=== PATIENT | female | born 1955 | race Caucasian/White ===

== ENCOUNTER 2022-11-30 09:37 | Emergency (ER) | payer OTHER ==
[~2022-11-30] VITALS: Ht 165.1 cm; Wt 63.5 kg
[2022-11-30 09:37] VITALS: BP_SYST 136
--- NOTE | 2022-11-30 09:37 | NUR ---
BROUGHT IN BY [facility] AND PLACED IN BED #4, TRIAGED AND REPORT GIVEN TO TIFFANIE
--- NOTE | 2022-11-30 09:40 | NUR ---
Note jeremie in EDM - 11/30/22 at 1001 by [email or web address] Pt brought from home/ BLS , A&Ox4, pt presents to ER with persistent cough, dizziness and R hip pain after falling few days ago, respirations even and unlabored, cap refill <3, VSS, afebrile, will cont to monitor.
--- NOTE | 2022-11-30 09:40 | NUR ---
Pt brought from home/ BLS , A&Ox4, pt presents to ER with persistent cough, dizziness and L hip pain after falling few days ago, respirations even and unlabored, cap refill <3, VSS, afebrile, will cont to monitor.
--- NOTE | 2022-11-30 10:00 | NUR ---
Dr Cline evaluating patient at bedside
[2022-11-30 10:03] LABS: BASOPHILS % (AUTO) 0.5 % (0.0-2.0); EOSINOPHILS # (AUTO) 0.1 K/uL (0.0-0.4); EOSINOPHILS % (AUTO) 1.6 % (0.0-4.0); HEMATOCRIT 40.4 % (36-48); HEMOGLOBIN 13.6 g/dL (12.0-16.0); LYMPHOCYTES # (AUTO) 1.5 K/uL (1.0-5.5); LYMPHOCYTES % (AUTO) 26.6 % (20.5-51.5); MEAN CORPUSCULAR HEMOGLOBIN 31 pg (27-31); MEAN CORPUSCULAR HGB CONC 34 % (32-36); MEAN CORPUSCULAR VOLUME 93 fL (79.0-98.0); MONOCYTES # (AUTO) 0.5 K/uL (0.0-1.0); NEUTROPHILS # (AUTO) 3.5 K/uL (1.8-7.7); NEUTROPHILS % (AUTO) 62.3 % (40.0-70.0); PLATELET COUNT (AUTO) 325 K/uL (130-430); RED BLOOD CELL COUNT(AUTO) 4.35 MIL/uL (4.2-6.2); RED CELL DISTRIBUTION WIDTH 13.1 % (9.0-15.0); WHITE BLOOD COUNT (AUTO) 5.6 K/uL (4.8-10.8)
[2022-11-30 10:20] LABS: ANION GAP 5 (5-15); CALCIUM 8.5 mg/dL (8.4-11.0); CHLORIDE 104 mmol/L (98-107); CREATININE 0.63 mg/dL (0.55-1.30); GFR AFRICAN AMERICAN 122 mL/min (>90); GLUCOSE 94 mg/dL (70-99); UREA NITROGEN, BLOOD 13 mg/dL (8-21)
[2022-11-30 10:23] LABS: PROTHROMBIN TIME 10.4 SECS (9.5-12.5)
[2022-11-30 10:27] LABS: ALANINE AMINOTRANSFERASE 16 U/L (12-78); ALBUMIN 3.4 g/dL (3.4-4.8); ASPARTATE AMINOTRANSFERASE 8 U/L (10-37); TOTAL BILIRUBIN 0.4 mg/dL (0.0-1.0)
--- NOTE | 2022-11-30 11:23 | NUR ---
Covid and flu swab sent to the lab
--- NOTE | 2022-11-30 11:24 | NUR ---
Pt A&Ox4, VSS, respirations even and unlabored, cap refill <3, pt requesting lunch, food tray ordered at this time. will cont to monitor.
[2022-11-30 11:26] VITALS: BP_SYST 136
[2022-11-30] MEDS ORDERED: ALBMDI INH (12:24)
[2022-11-30] MEDS ORDERED: PSEU30TA36 PO (12:24)
--- NOTE | 2022-11-30 13:50 | NUR ---
DPatient given written and verbal discharge instructions and verbalizes understanding. ER MD discussed with patient the results and treatment provided. Patient in stable condition. ID arm band removed. Rx of SUDAFED, VENTOLIN given. Patient educated on pain management and to follow up with PMD. Pain Scale 0/10. Opportunity for questions provided and answered. Medication side effect fact sheet provided.
== END 2022-11-30 13:50 | disposition home or self-care (01) ==
LOC: SED 09:37
DX: G45.9 Transient cerebral ischemic attack, unspecified (principal); J40 Bronchitis, not specified as acute or chronic; R29.810 Facial weakness; Z79.899 Other long term (current) drug therapy; Z20.822 Contact with and (suspected) exposure to COVID-19
CPT/HCPCS: 36415; 70450-TC; 73502; 76376; 80053; 83880; 84484; 85025; 85610-TC; 85730-TC; 93005; 99285